=== PATIENT | female | born 1990 | race Caucasian/White ===

== ENCOUNTER 2017-02-12 15:01 | Inpatient (IN) | payer OTHER ==
[~2017-02-12] VITALS: Ht 162.6 cm; Wt 105.7 kg
[2017-03-16] MEDS ORDERED: SYNTHROID PO (10:12)
== END 2017-03-19 16:14 | disposition home or self-care (01) | DRG 766 ==
LOC: LDR 03-16 07:17 → OB/GYN 03-16 07:17 → LDR 03-16 10:50 → OB/GYN 03-16 20:39
PROVIDERS: Obstetrics & Gynecology
PROC: 0UL70ZZ Occlusion of Bilateral Fallopian Tubes, Open Approach (ICD-10-PCS; 2017-03-16)
PROC: 4A1HXCZ Monitoring of Products of Conception, Cardiac Rate, External Approach (ICD-10-PCS; 2017-03-16)
PROC: 10907ZC Drainage of Amniotic Fluid, Therapeutic from Products of Conception, Via Natural or Artificial Opening (ICD-10-PCS; 2017-03-16)
PROC: 4A033R1 Measurement of Arterial Saturation, Peripheral, Percutaneous Approach (ICD-10-PCS; 2017-03-16)
PROC: 10D00Z1 Extraction of Products of Conception, Low, Open Approach (ICD-10-PCS; principal; 2017-03-16 18:00)
DX: O33.9 Maternal care for disproportion, unspecified (principal); O24.410 Gestational diabetes mellitus in pregnancy, diet controlled; Z37.0 Single live birth; Z3A.39 39 weeks gestation of pregnancy; Z30.2 Encounter for sterilization

== ENCOUNTER 2020-11-28 10:00 | Outpatient (CLI) | payer OTHER ==
[~2020-11-28 10:00] MED LIST: SYNTHROID PO
== END 2020-11-28 10:30 | disposition home or self-care (01) ==
LOC: PPH VACUNA 10:00
PROVIDERS: ATTEND Emergency Medicine Pediatric Emergency Medicine
DX: Z23 Encounter for immunization (principal)